=== PATIENT | female | born 1955 | race Caucasian/White ===

== ENCOUNTER → 2017-07-05 | Emergency (ER) | payer OTHER ==
[~2017-07-05] VITALS: Ht 162.6 cm; Wt 69.4 kg
[~2017-07-05] MED LIST: CEFTIN250 MG PO; DICLOFENAC SODI50 MG PO
== END | disposition home or self-care (01) ==
LOC: ER 05:07
DX: M25.551 Pain in right hip (principal)

== ENCOUNTER → 2017-07-27 | Emergency (ER) | payer OTHER ==
[~2017-07-27] VITALS: Ht 162.6 cm; Wt 69.4 kg
== END | disposition home or self-care (01) ==
LOC: ER 14:26
DX: J06.9 Acute upper respiratory infection, unspecified (principal)

== ENCOUNTER 2017-10-13 12:09 | Emergency (ER) | payer OTHER ==
[~2017-10-13] VITALS: Ht 162.6 cm; Wt 69.9 kg
== END 2017-10-13 14:19 | disposition home or self-care (01) ==
LOC: ER 12:09
DX: H92.01 Otalgia, right ear (principal)

== ENCOUNTER 2018-02-22 14:37 | Emergency (ER) | payer OTHER ==
[~2018-02-22] VITALS: Ht 162.6 cm; Wt 73.5 kg
== END 2018-02-22 16:59 | disposition home or self-care (01) ==
LOC: ER 14:37
DX: M62.830 Muscle spasm of back (principal)

== ENCOUNTER 2018-07-15 10:40 | Emergency (ER) | payer OTHER ==
[~2018-07-15] VITALS: Ht 162.6 cm; Wt 74.8 kg
== END 2018-07-15 14:17 | disposition home or self-care (01) ==
LOC: ER 10:40
DX: J06.9 Acute upper respiratory infection, unspecified (principal)

== ENCOUNTER 2018-10-20 11:11 | Emergency (ER) | payer OTHER ==
[~2018-10-20] VITALS: Ht 162.6 cm; Wt 76.2 kg
== END 2018-10-20 15:04 | disposition home or self-care (01) ==
LOC: ER 11:11
DX: J35.01 Chronic tonsillitis (principal)

== ENCOUNTER 2018-11-18 16:30 | Emergency (ER) | payer OTHER ==
[~2018-11-18] VITALS: Ht 162.6 cm; Wt 74.4 kg
[2018-11-18] MEDS ORDERED: PROMETH-CODEIN 65 ML PO (20:16)
[2018-11-18] MEDS ORDERED: ZITHROMAX500 MG PO (20:16)
[2018-11-18] MEDS ORDERED: MUCINEX1200 MG PO (20:16)
== END 2018-11-18 20:58 | disposition home or self-care (01) ==
LOC: ER 16:30
DX: J06.9 Acute upper respiratory infection, unspecified (principal)

== ENCOUNTER 2019-12-12 07:15 | Emergency (ER) | payer OTHER ==
[~2019-12-12] VITALS: Ht 162.6 cm; Wt 72.6 kg
[~2019-12-12 07:15] MED LIST changes: +MUCINEX1200 MG PO; +PROMETH-CODEIN 65 ML PO; +ZITHROMAX500 MG PO
== END 2019-12-12 10:45 | disposition home or self-care (01) ==
LOC: ER
DX: R10.12 Left upper quadrant pain (principal)

== ENCOUNTER 2020-03-09 07:31 | Emergency (ER) | payer OTHER ==
[~2020-03-09] VITALS: Ht 162.6 cm; Wt 73.5 kg
[2020-03-09] MEDS ORDERED: KETO10TA2 PO (10:25)
== END 2020-03-09 10:17 | disposition home or self-care (01) ==
LOC: ER 07:31
DX: R10.2 Pelvic and perineal pain (principal)

== ENCOUNTER 2022-11-25 16:23 | Emergency (ER) | payer OTHER ==
[~2022-11-25] VITALS: Ht 162.6 cm; Wt 73.5 kg
[~2022-11-25 16:23] MED LIST changes: +KETO10TA2 PO
== END 2022-11-25 21:54 | disposition home or self-care (01) ==
LOC: ER 16:23
DX: M62.830 Muscle spasm of back (principal); M54.9 Dorsalgia, unspecified; Z88.1 Allergy status to other antibiotic agents

== ENCOUNTER 2023-08-13 10:48 | Outpatient (CLI) | payer OTHER | END 2023-08-13 10:56 | disposition home or self-care (01) | LOC: SONOGRAMA 10:48 | PROVIDERS: ATTEND Orthopaedic Surgery | DX: M76.821 Posterior tibial tendinitis, right leg (principal) ==

== ENCOUNTER 2023-08-27 12:10 | Outpatient (CLI) | payer OTHER | END 2023-08-27 12:15 | disposition home or self-care (01) | LOC: NUCLEAR 12:10 | PROVIDERS: ATTEND Orthopaedic Surgery | DX: M81.0 Age-related osteoporosis without current pathological fracture (principal) ==

== ENCOUNTER 2024-01-11 16:32 | Emergency (ER) | payer OTHER ==
[~2024-01-11] VITALS: Ht 157.5 cm; Wt 74.8 kg
[2024-01-11] MEDS ORDERED: GUAIFENESIN/DEXTROMETHORPHAN 10ML BLIST.PACK PO ONE (18:30)
[2024-01-11] MEDS ORDERED: CETIRIZINE HCL 5 MG/5 ML ML PO ONE (18:30)
[2024-01-11] MEDS ORDERED: CETIRIZINE HCL 5MG/5ML BLIST.PACK PO ONE (18:34)
[2024-01-11] MEDS ORDERED: GUAIFEN/DEXTROMETHORPHAN/PE 10 ML BLIST.PACK PO ONE (18:34)
[2024-01-11] MEDS ORDERED: ZYRTEC10 MG PO (18:35)
[2024-01-11] MEDS ORDERED: AMOX-CLAV 875-1 EAC1 PO (18:35)
== END 2024-01-11 19:30 | disposition home or self-care (01) ==
LOC: ER 16:33
DX: J32.9 Chronic sinusitis, unspecified (principal); Z88.1 Allergy status to other antibiotic agents

== ENCOUNTER 2024-07-15 15:13 | Outpatient (CLI) | payer OTHER ==
[~2024-07-15 15:13] MED LIST changes: +AMOX-CLAV 875-1 EAC1 PO; +ZYRTEC10 MG PO
== END 2024-07-15 15:18 | disposition home or self-care (01) ==
LOC: SONOGRAMA 15:13
PROVIDERS: ATTEND Specialist
DX: M75.101 Unspecified rotator cuff tear or rupture of right shoulder, not specified as traumatic (principal)

== ENCOUNTER 2024-08-22 16:39 | Emergency (ER) | payer OTHER ==
[~2024-08-22] VITALS: Ht 157.5 cm; Wt 73.9 kg
[2024-08-22] MEDS ORDERED: BACITRACIN1 EACH TOP (21:06)
== END 2024-08-22 21:09 | disposition home or self-care (01) ==
LOC: ER 16:42
DX: R53.81 Other malaise (principal); S09.8XXA Other specified injuries of head, initial encounter; W25.XXXA Contact with sharp glass, initial encounter; Y93.89 Activity, other specified; Y92.89 Other specified places as the place of occurrence of the external cause; Y99.8 Other external cause status; L90.5 Scar conditions and fibrosis of skin; Z88.1 Allergy status to other antibiotic agents

== ENCOUNTER 2024-11-10 10:54 | Emergency (ER) | payer OTHER ==
[~2024-11-10] VITALS: Ht 162.6 cm; Wt 73.5 kg
[~2024-11-10 10:54] MED LIST changes: +BACITRACIN1 EACH TOP
[2024-11-10] MEDS ORDERED: ACETAMINOPHEN 500 MG GEL..CAP PO ONE ×2 (16:00→16:12)
[2024-11-10 16:28] LABS: BASO % 0.3 % (0.1-1.2); EOS # 0.01 (0.04-0.54); EOS % 0.1 % (0.7-7.0); HEMATOCRIT 33.3 % (34.1-44.9); HEMOGLOBIN 11.4 g/dL (11.2-15.7); LYMPH # 0.43 (1.18-3.74); LYMPH % 5.9 % (19.3-53.1); MEAN CORPUSCULAR HEMOGLOBIN 31.6 pg (25.6-32.2); MONO # 0.99 (0.24-0.82); NEUT # 5.82 (1.56-6.13); NEUT % 79.5 % (34.0-71.1); PLATELET COUNT 198 K/uL (163-369); RED BLOOD COUNT 3.61 M/uL (3.93-5.22); RED CELL DISTRIBUTION WIDTH 12.5 % (11.6-14.4)
[2024-11-10 16:29] LABS: MONO % 13.5 % (4.7-12.5)
[2024-11-10 17:04] LABS: COVID-19 AG POSITIVE (NEGATIVE)
[2024-11-10 17:15] LABS: INFLUENZA A AG NEGATIVE (NEGATIVE); INFLUENZA B AG NEGATIVE (NEGATIVE)
== END 2024-11-10 19:08 | disposition home or self-care (01) ==
LOC: ER 10:54
PROVIDERS: Preventive Medicine Public Health & General Preventive Medicine
DX: U07.1 COVID-19 (principal); J06.9 Acute upper respiratory infection, unspecified; Z88.1 Allergy status to other antibiotic agents